=== PATIENT | male | born 2000 | race Two or more races ===

== ENCOUNTER 2024-12-11 15:53 | Emergency (ER) | payer OTHER ==
[~2024-12-11] VITALS: Ht 180.3 cm; Wt 81.6 kg
[2024-12-11] MEDS ORDERED: ZYRTEC10 M3 PO (16:12)
[2024-12-11] MEDS ORDERED: SINGULAIR10 MG (16:12)
[2024-12-11] MEDS ORDERED: FLONASE16 GM NS (16:13)
== END 2024-12-11 17:46 | disposition home or self-care (01) ==
LOC: ER 15:55
DX: M20.012 Mallet finger of left finger(s) (principal)